=== PATIENT | male | born 1950 | race Caucasian/White ===

== ENCOUNTER 2022-10-15 20:02 | Emergency (ER) | payer OTHER ==
[~2022-10-15] VITALS: Ht 172.7 cm; Wt 93.0 kg
[2022-10-15 21:10] VITALS: BP_SYST 159; PULSE 77; RESP 18; TEMP 100.1; O2SAT 96
--- NOTE | 2022-10-15 21:18 | NUR ---
Patient triaged and placed in waiting room. VSS and patient appears in no acute distress at this time. Accompanied by SON, awaiting available bed, and MD notified of need for MSE.
--- NOTE | 2022-10-15 21:41 | NUR ---
[id number] placed in room-6 report to bedside RN
[2022-10-15 23:07] LABS: BILIRUBIN,URINE NEGATIVE (NEGATIVE); BLOOD, URINE NEGATIVE (NEGATIVE); CLARITY/URINE CLEAR (CLEAR); COLOR,URINE YELLOW (YELLOW); GLUCOSE,URINE NEGATIVE (NEGATIVE); KETONES,URINE NEGATIVE (NEGATIVE); LEUKOCYTE ESTERASE ,URINE NEGATIVE (NEGATIVE); NITRITE, URINE NEGATIVE (NEGATIVE); PROTEIN URINE NEGATIVE (NEGATIVE)
[2022-10-15 23:48] LABS: BASOPHILS % (AUTO) 0.2 % (0.0-2.0); EOSINOPHILS # (AUTO) 0.3 K/uL (0.0-0.4); EOSINOPHILS % (AUTO) 2.3 % (0.0-4.0); HEMATOCRIT 41.9 % (36-54); HEMOGLOBIN 14.2 g/dL (14.0-18.0); LYMPHOCYTES # (AUTO) 1.6 K/uL (1.0-5.5); LYMPHOCYTES % (AUTO) 14.5 % (20.5-51.5); MEAN CORPUSCULAR HEMOGLOBIN 32 pg (27-31); MEAN CORPUSCULAR HGB CONC 34 % (32-36); MEAN CORPUSCULAR VOLUME 95 fL (79.0-98.0); MONOCYTES # (AUTO) 0.9 K/uL (0.0-1.0); MONOCYTES % (AUTO) 8.2 % (1.7-9.3); NEUTROPHILS # (AUTO) 8.3 K/uL (1.8-7.7); NEUTROPHILS % (AUTO) 74.8 % (40.0-70.0); PLATELET COUNT (AUTO) 158 K/uL (130-430); RED BLOOD CELL COUNT(AUTO) 4.42 MIL/uL (4.2-6.2); RED CELL DISTRIBUTION WIDTH 12.5 % (9.0-15.0); WHITE BLOOD COUNT (AUTO) 11.1 K/uL (4.8-10.8)
[2022-10-16 00:01] LABS: ANION GAP 7 (5-15); CHLORIDE 102 mmol/L (98-107); CREATININE 0.91 mg/dL (0.55-1.30); GLUCOSE 106 mg/dL (74-106); UREA NITROGEN, BLOOD 17 mg/dL (8-21)
--- NOTE | 2022-10-16 00:03 | NUR ---
MADE PT AWARE WE ARE STILL WAITING ON CT RESULTS. NO DISTRESS AT THIS TIME. VSS. SON AT BEDSIDE.
[2022-10-16 00:08] LABS: ALANINE AMINOTRANSFERASE 28 U/L (12-78); ALBUMIN 3.6 g/dL (3.4-4.8); ASPARTATE AMINOTRANSFERASE 22 U/L (10-37)
[2022-10-16 00:43] LABS: INR 1.1 (0.80-1.20); PROTHROMBIN TIME 11.5 SECS (9.5-12.5)
[2022-10-16 02:00] VITALS: BP_SYST 150; PULSE 58; RESP 14; TEMP 98; O2SAT 96
[2022-10-16] MEDS ORDERED: IBUP-1969 PO (02:28)
[2022-10-16] MEDS ORDERED: TRAM50TA2 PO (02:28)
[2022-10-16] MEDS ORDERED: IBUPROFEN 600 MG TABLET PO ONE (02:30)
[2022-10-16] MEDS ORDERED: HYDROcodone/ACETAMIN 5-325 MG TAB (NORCO/ VICODIN) PO ONE (02:30)
--- NOTE | 2022-10-16 02:40 | NUR ---
Patient given written and verbal discharge instructions and verbalizes understanding. ER MD discussed with patient the results and treatment provided. Patient in stable condition. ID arm band removed. Rx of IBUPROFEN & TRAMADOL given. Patient educated on pain management and to follow up with PMD. Pain Scale 5/10. Opportunity for questions provided and answered. Medication side effect fact sheet provided.
== END 2022-10-16 02:40 | disposition home or self-care (01) ==
LOC: SED 20:02
DX: S39.012A Strain of muscle, fascia and tendon of lower back, initial encounter (principal); S79.912A Unspecified injury of left hip, initial encounter; R50.9 Fever, unspecified; Z79.899 Other long term (current) drug therapy; Z20.822 Contact with and (suspected) exposure to COVID-19; X58.XXXA Exposure to other specified factors, initial encounter; Y93.89 Activity, other specified; Y92.89 Other specified places as the place of occurrence of the external cause; Y99.8 Other external cause status
CPT/HCPCS: 36415; 71045; 72131; 72192-TC; 76376; 80053; 81003; 82550; 83605; 84484; 85025; 85384; 85610-TC; 85730-TC; 87040; 87086; 93005; 99285